=== PATIENT | male | born 1945 | race Caucasian/White ===

== ENCOUNTER 2018-06-20 21:06 | Inpatient (IN) | payer OTHER, MEDICAID ==
[~2018-06-20] VITALS: Ht 175.3 cm; Wt 72.2 kg
[~2018-06-20 21:06] MED LIST: ALLOPURINOL100 MG PO; ALPHAGAN P5 M1 OS; AUG500 PO; BACO TOP; BENADRYL ALLERG25 M1 PO; CLEOCIN HCL300 MG PO; CLINDAMYCIN HC300 MG PO; COSOPT OCUMETER10 ML OS; DICLOFENAC SOD2.5 ML OD; DICLOFENAC SOD2.5 ML OS; DOC-Q-LACE100 MG PO; DORZOLAMIDE HYD10 M2 OU; ECO81 PO; GUAIFENESIN AN118 ML PO; HIBICLENS118 ML TOP; HUMALOG MIX 75/10 ML SC; HUMALOG MIX 75/10 ML SQ; HYDRALAZINE HY100 MG; HYDRALAZINE HY100 MG PO; HYDRALAZINE HYD50 MG PO; I20 PO; KEN025C TOP; KIONEX15 GM/60 M; LAC PO; LEVAQUIN250 MG PO; LEVAQUIN750 MG PO; LORAZEPAM1 MG PO; LOVASTATIN20 MG PO; METOCLOPRAMIDE5 M1 PO; METOPROLOL TART25 M1 PO; NOR10 PO; NORCO1 TA2 PO; OMEPRAZOLE DR20 M1 PO; PHOS; PRED FORTE1 ML OD; PREDNISOLONE ACE5 ML OD; PROBIOTIC FORM1 EACH; PROMETHAZINE HY25 M1 PO; TRAMADOL HCL50 MG PO; VITAMIN D32000 I2 PO; XALATAN2.5 ML OS; ZESTRIL20 MG PO; ZITHROMAX Z-PA250 MG PO; ZOF4 PO; [UNRECOGNIZED DRUG - OTHER] PO
[2018-06-20 21:18] VITALS: Ht 175.3 cm; Wt 72.2 kg
[2018-06-20 23:19] LABS: BASOPHIL % 0.3 % (0-2); PLATELET COUNT 157 x10^3mcL (130-400)
[2018-06-20 23:47] LABS: RED CELL DISTRIBUTION WIDTH 14.8 % (11.5-14.5)
[2018-06-20 23:50] LABS: ALBUMIN 3.6 g/dL (3.4-5.0); ALKALINE PHOSPHATASE 70 U/L (46-116); ALT/SGPT 13 U/L (16-63); AST/SGOT 5 U/L (15-37); BILIRUBIN TOTAL 0.5 mg/dL (0.20-1.00); CHLORIDE SERUM 91 mmol/L (98-107); GLUCOSE SERUM 162 mg/dL (74-106); POTASSIUM SERUM 5.4 mmol/L (3.5-5.1); SODIUM SERUM 131 mmol/L (136-145); TOTAL PROTEIN, SERUM 7.9 g/dL (6.4-8.2)
[2018-06-20 23:52] LABS: CREATININE SERUM 12.6 mg/dL (0.7-1.3)
[2018-06-21] VITALS (8 sets, daily range): BP systolic 98–190; BP diastolic 44–77
[2018-06-21 00:55] LABS: UA SPECIFIC GRAVITY 1.015 (1.005-1.035); microscopic required? YES; urine erythrocyte TRACE (NEGATIVE)
[2018-06-21 04:32] LABS: T3 TOTAL 0.5 ng/mL
[2018-06-21 04:37] LABS: MAGNESIUM 2.4 mg/dL (1.8-2.4); PHOSPHOROUS 3.1 mg/dL (2.5-4.9)
[2018-06-21 04:40] LABS: CHOLESTEROL/HDL RATIO 2.3
[2018-06-21 04:48] LABS: FREE T4 1.15 ng/dL (0.76-1.46); FREE THYROXINE INDEX 2.3 ug/dL (1.4-4.5); T4(THYROXINE) 7.1 ug/dL (4.7-13.3)
[2018-06-21 06:13] LABS: BASOPHIL % 0.6 % (0-2); PLATELET COUNT 153 x10^3mcL (130-400)
[2018-06-21 06:25] LABS: RED CELL DISTRIBUTION WIDTH 14.8 % (11.5-14.5)
[2018-06-21 06:32] LABS: CALCIUM 8.8 mg/dL (8.5-10.1); CARBON DIOXIDE 25.5 mmol/L (21-32); CHLORIDE SERUM 92 mmol/L (98-107); GLUCOSE SERUM 188 mg/dL (74-106); POTASSIUM SERUM 5.4 mmol/L (3.5-5.1); SODIUM SERUM 131 mmol/L (136-145)
[2018-06-21 07:25] LABS: CREATININE SERUM 13.6 mg/dL (0.7-1.3)
[2018-06-21 14:10] LABS: AMPHETAMINE QUAL UR NONE DETECTED (See below)
[2018-06-22 05:04] VITALS: BP 153/78
[2018-06-22 06:36] LABS: BASOPHIL % 0.6 % (0-2); PLATELET COUNT 169 x10^3mcL (130-400)
[2018-06-22 06:42] LABS: CALCIUM 8.8 mg/dL (8.5-10.1); CARBON DIOXIDE 29.4 mmol/L (21-32); CHLORIDE SERUM 95 mmol/L (98-107); GLUCOSE SERUM 112 mg/dL (74-106); MAGNESIUM 1.9 mg/dL (1.8-2.4); PHOSPHOROUS 4.3 mg/dL (2.5-4.9); POTASSIUM SERUM 4.6 mmol/L (3.5-5.1); SODIUM SERUM 135 mmol/L (136-145)
[2018-06-22 06:46] LABS: RED CELL DISTRIBUTION WIDTH 14.9 % (11.5-14.5)
[2018-06-22 07:21] LABS: CREATININE SERUM 8.4 mg/dL (0.7-1.3)
[2018-06-22 08:54] VITALS: BP 163/73
[2018-06-22 12:32] VITALS: BP 129/62
[2018-06-22 17:06] VITALS: BP 149/70
[2018-06-22 21:17] VITALS: BP 167/71
[2018-06-22 23:53] VITALS: BP 161/72
[2018-06-23 05:49] VITALS: BP 164/71
[2018-06-23 05:52] VITALS: BP 164/71
[2018-06-23 07:03] LABS: CALCIUM 8.4 mg/dL (8.5-10.1); CARBON DIOXIDE 25.8 mmol/L (21-32); CHLORIDE SERUM 94 mmol/L (98-107); GLUCOSE SERUM 159 mg/dL (74-106); MAGNESIUM 1.9 mg/dL (1.8-2.4); PHOSPHOROUS 4.7 mg/dL (2.5-4.9); POTASSIUM SERUM 4.7 mmol/L (3.5-5.1); SODIUM SERUM 135 mmol/L (136-145)
[2018-06-23 07:04] LABS: BASOPHIL % 0.6 % (0-2); PLATELET COUNT 174 x10^3mcL (130-400)
[2018-06-23 07:12] LABS: RED CELL DISTRIBUTION WIDTH 15.3 % (11.5-14.5)
[2018-06-23 07:47] LABS: CREATININE SERUM 10.9 mg/dL (0.7-1.3)
[2018-06-23 08:25] VITALS: BP 167/74
[2018-06-23 13:00] VITALS: BP 124/60
[2018-06-23 17:18] VITALS: BP 159/72
[2018-06-23 20:44] VITALS: BP 162/73
[2018-06-24 05:19] VITALS: BP 169/75
[2018-06-24 06:03] LABS: BASOPHIL % 0.3 % (0-2); PLATELET COUNT 178 x10^3mcL (130-400)
[2018-06-24 06:08] LABS: RED CELL DISTRIBUTION WIDTH 14.9 % (11.5-14.5)
[2018-06-24 06:28] LABS: CALCIUM 8.5 mg/dL (8.5-10.1); CARBON DIOXIDE 26.6 mmol/L (21-32); CHLORIDE SERUM 99 mmol/L (98-107); GLUCOSE SERUM 278 mg/dL (74-106); POTASSIUM SERUM 4.2 mmol/L (3.5-5.1); SODIUM SERUM 136 mmol/L (136-145)
[2018-06-24 06:34] LABS: CREATININE SERUM 7.9 mg/dL (0.7-1.3)
[2018-06-24 06:59] VITALS: BP 161/74
[2018-06-24 08:45] VITALS: BP 144/64
[2018-06-24] MEDS ORDERED: DOXYCYCLINE HY100 MG PO (10:44)
[2018-06-24] MEDS ORDERED: AMO500 PO (10:45)
[2018-06-24 12:36] VITALS: BP 140/68
[2018-06-24 13:21] VITALS: BP 140/68
== END 2018-06-24 14:30 | disposition home or self-care (01) | DRG 193 ==
LOC: ED 21:06 → DU 06-21 02:18
PROVIDERS: Emergency Medicine; Family Medicine; Internal Medicine
DX: J18.9 Pneumonia, unspecified organism (principal); N18.6 End stage renal disease; N17.0 Acute kidney failure with tubular necrosis; I12.0 Hypertensive chronic kidney disease with stage 5 chronic kidney disease or end stage renal disease; D68.69 Other thrombophilia; E87.1 Hypo-osmolality and hyponatremia; E11.65 Type 2 diabetes mellitus with hyperglycemia; E11.22 Type 2 diabetes mellitus with diabetic chronic kidney disease; E11.51 Type 2 diabetes mellitus with diabetic peripheral angiopathy without gangrene; D63.1 Anemia in chronic kidney disease; R80.8 Other proteinuria; E87.5 Hyperkalemia; H54.7 Unspecified visual loss; Z68.23 Body mass index [BMI] 23.0-23.9, adult; Z99.2 Dependence on renal dialysis; Z79.4 Long term (current) use of insulin
CPT/HCPCS: 83880; 84439; 97110-GP; 97116-GP; 97530-GP; A4719; J0610; J0696; J0885-EC; J2405; J2543; J3490; J7030; J7620; Q0092; Q0162

== ENCOUNTER 2019-01-31 10:08 | Inpatient (IN) | payer OTHER, MEDICAID ==
[~2019-01-31] VITALS: Ht 167.6 cm; Wt 70.0 kg
[~2019-01-31 10:08] MED LIST changes: +AMO500 PO; +DOXYCYCLINE HY100 MG PO
[2019-01-31 10:30] VITALS: Ht 167.6 cm; Wt 70.0 kg
[2019-01-31 11:15] LABS: ALBUMIN 3.7 g/dL (3.4-5.0); ALKALINE PHOSPHATASE 69 U/L (46-116); ALT/SGPT 10 U/L (16-63); AST/SGOT 11 U/L (15-37); BILIRUBIN TOTAL 0.7 mg/dL (0.20-1.00); CALCIUM 9.3 mg/dL (8.5-10.1); CARBON DIOXIDE 32.6 mmol/L (21-32); CHLORIDE SERUM 96 mmol/L (98-107); GLUCOSE SERUM 193 mg/dL (74-106); POTASSIUM SERUM 5.3 mmol/L (3.5-5.1); SODIUM SERUM 137 mmol/L (136-145); TOTAL PROTEIN, SERUM 7.9 g/dL (6.4-8.2)
[2019-01-31 11:19] LABS: CREATININE SERUM 12.1 mg/dL (0.7-1.3)
[2019-01-31 11:42] LABS: BASOPHIL % 0.9 % (0-2); PLATELET COUNT 208 x10^3mcL (130-400)
[2019-01-31 11:43] LABS: RED CELL DISTRIBUTION WIDTH 17.8 % (11.5-14.5)
[2019-01-31] MEDS ORDERED: LOCALNESIUM1 TAB (13:02)
[2019-01-31] MEDS ORDERED: ZESTRIL20 MG PO (13:04)
[2019-01-31 13:21] LABS: CHOLESTEROL/HDL RATIO 2.7; MAGNESIUM 2.6 mg/dL (1.8-2.4); PHOSPHOROUS 4.3 mg/dL (2.5-4.9)
[2019-01-31 13:28] LABS: FREE T4 1.07 ng/dL (0.76-1.46); FREE THYROXINE INDEX 2.4 ug/dL (1.4-4.5); T4(THYROXINE) 6.7 ug/dL (4.7-13.3)
[2019-01-31 13:52] LABS: T3 TOTAL 0.51 ng/mL
[2019-01-31 14:00] VITALS: BP 168/73
[2019-01-31 16:31] VITALS: BP 172/72
[2019-01-31 17:00] VITALS: BP 172/72
[2019-01-31 21:09] VITALS: BP 172/71
[2019-01-31] MEDS ORDERED: DICLOFENAC SOD2.5 ML OS (22:04)
[2019-01-31] MEDS ORDERED: SYSTANE 0.3-0.415 ML OU (22:05)
[2019-01-31 23:06] VITALS: BP 144/62
[2019-02-01 06:47] VITALS: BP 180/76
[2019-02-01 07:21] LABS: CARBON DIOXIDE 29.2 mmol/L (21-32); CHLORIDE SERUM 101 mmol/L (98-107); CREATININE SERUM 8.1 mg/dL (0.7-1.3); GLUCOSE SERUM 132 mg/dL (74-106); MAGNESIUM 2.1 mg/dL (1.8-2.4); POTASSIUM SERUM 4.5 mmol/L (3.5-5.1); SODIUM SERUM 139 mmol/L (136-145)
[2019-02-01 07:24] LABS: BASOPHIL % 1.1 % (0-2); PLATELET COUNT 185 x10^3mcL (130-400)
[2019-02-01 07:39] LABS: RED CELL DISTRIBUTION WIDTH 17.8 % (11.5-14.5)
[2019-02-01 10:10] VITALS: BP 163/64
[2019-02-01 13:06] VITALS: BP 122/71
[2019-02-01 16:34] VITALS: BP 166/73
[2019-02-01 19:48] VITALS: BP 153/72
[2019-02-02 06:11] VITALS: BP 172/73
[2019-02-02 06:21] LABS: BASOPHIL % 1.3 % (0-2); CALCIUM 8.4 mg/dL (8.5-10.1); CARBON DIOXIDE 26.4 mmol/L (21-32); CHLORIDE SERUM 96 mmol/L (98-107); GLUCOSE SERUM 161 mg/dL (74-106); PLATELET COUNT 173 x10^3mcL (130-400); POTASSIUM SERUM 4.8 mmol/L (3.5-5.1); SODIUM SERUM 136 mmol/L (136-145)
[2019-02-02 06:28] LABS: RED CELL DISTRIBUTION WIDTH 17.3 % (11.5-14.5)
[2019-02-02 09:39] VITALS: BP 169/69
[2019-02-02 12:28] VITALS: BP 163/63
[2019-02-02 17:24] VITALS: BP 154/62
[2019-02-02 21:08] VITALS: BP 135/58
[2019-02-03 05:42] VITALS: BP 145/69
[2019-02-03 07:32] LABS: CALCIUM 8.4 mg/dL (8.5-10.1); CARBON DIOXIDE 31.2 mmol/L (21-32); CHLORIDE SERUM 98 mmol/L (98-107); GLUCOSE SERUM 128 mg/dL (74-106); POTASSIUM SERUM 4.3 mmol/L (3.5-5.1); SODIUM SERUM 137 mmol/L (136-145)
[2019-02-03 07:37] LABS: CREATININE SERUM 7.2 mg/dL (0.7-1.3)
[2019-02-03 07:58] VITALS: BP 145/69
[2019-02-03 08:10] LABS: BASOPHIL % 1.2 % (0-2); PLATELET COUNT 168 x10^3mcL (130-400); RED CELL DISTRIBUTION WIDTH 18.4 % (11.5-14.5)
[2019-02-03 10:03] VITALS: BP 167/64
[2019-02-03] MEDS ORDERED: LEVAQUIN500 M1 PO (11:39)
[2019-02-03] MEDS ORDERED: METOPROLOL TAR100 MG PO (11:40)
[2019-02-03] MEDS ORDERED: LAC PO (11:40)
[2019-02-03 12:27] VITALS: BP 160/67
[2019-02-03 13:20] VITALS: BP 160/67
== END 2019-02-03 15:21 | disposition home health service (06) | DRG 193 ==
LOC: ED 10:08 → DU 12:29
PROVIDERS: Emergency Medicine; ADMIT Internal Medicine
DX: J18.9 Pneumonia, unspecified organism (principal); N18.6 End stage renal disease; J96.01 Acute respiratory failure with hypoxia; I12.0 Hypertensive chronic kidney disease with stage 5 chronic kidney disease or end stage renal disease; E11.22 Type 2 diabetes mellitus with diabetic chronic kidney disease; E87.5 Hyperkalemia; E83.41 Hypermagnesemia; E11.40 Type 2 diabetes mellitus with diabetic neuropathy, unspecified; H54.8 Legal blindness, as defined in USA; M10.9 Gout, unspecified; Z68.23 Body mass index [BMI] 23.0-23.9, adult; Z79.4 Long term (current) use of insulin; Z99.81 Dependence on supplemental oxygen; Z99.2 Dependence on renal dialysis
CPT/HCPCS: 36600; 82962; 83880; 84439; 87804; 94150; 97116-GP; 97530-GP; J0456; J0696; J1940; J2405; J2543; J7030; J7050; J7620; J8597; Q0092